=== PATIENT | female | born 1990 | race Caucasian/White ===

== ENCOUNTER → 2017-07-05 | Outpatient (CLI) | payer OTHER ==
[~2017-07-05] MED LIST: BLAC540C4 PO; BUPR150T6 PO; DICL25CA4 PO; FLUO10TA PO; HYDR-3240 PO; L-NO1TBD6 PO; METH500T7 PO; MULT-26 PO; NORT75CA PO; OMEP-110 PO; OXYC-307 PO; SULF1TAB24 PO; TIZA4CAP PO
[2017-07-05 08:36] LABS: BASOPHILS # (AUTO) 0.07 x10^3/uL (0-0.1); BASOPHILS % (AUTO) 1 % (0-1); EOSINOPHILS # (AUTO) 0.19 x10^3/uL (0-0.4); EOSINOPHILS % (AUTO) 2 % (1-7); LYMPHOCYTES # (AUTO) 4.15 x10^3/uL (1-3.4); LYMPHOCYTES % (AUTO) 49 % (22-44); MD NO; MEAN CORPUSCULAR HEMOGLOBIN 28.3 pg (27.0-34.8); MEAN CORPUSCULAR HGB CONC 33.6 g/dL (32.4-35.8); MEAN CORPUSCULAR VOLUME 84.2 fL (80-100); MEAN PLATELET VOLUME 10.4 fL (7.4-10.4); MONOCYTES # (AUTO) 0.51 x10^3/uL (0.2-0.8); MONOCYTES % (AUTO) 6 % (2-9); NEUTROPHILS # (AUTO) 3.52 x10^3/uL (1.8-6.8); NEUTROPHILS % (AUTO) 42 % (42-75); PLATELET COUNT 241 x10^3/uL (130-400); RED BLOOD COUNT 4.79 x10^6/uL (3.82-5.3)
== END | disposition home or self-care (01) ==
LOC: STAR 07:49
PROVIDERS: ATTEND Obstetrics & Gynecology Female Pelvic Medicine and Reconstructive Surgery
DX: Z01.818 Encounter for other preprocedural examination (principal); R10.2 Pelvic and perineal pain; N80.9 Endometriosis, unspecified
CPT/HCPCS: 36415; 85025

== ENCOUNTER 2017-07-16 09:29 | Day surgery (SDC) | payer OTHER ==
[~2017-07-16] VITALS: Ht 170.2 cm; Wt 113.3 kg
[2017-07-16] MEDS ORDERED: LACTATED RINGERS 1,000 ML IV SCH ×2 (10:03→12:06)
[2017-07-16 10:05] VITALS: BP 152/102
[2017-07-16] MEDS ORDERED: FENTANYL PF 250 MCG/5ML ONE ×2 (10:12→11:44)
[2017-07-16] MEDS ORDERED: MIDAZOLAM 1 MG/ML, 2ML ONE (10:12)
[2017-07-16 10:15] VITALS: BP 143/84
[2017-07-16] MEDS ORDERED: OXYcodone/APAP 10/325MG TABLET ONE (10:36)
[2017-07-16] MEDS ORDERED: GABAPENTIN 300 MG CAPSULE ONE (10:36)
[2017-07-16] MEDS ORDERED: EPINEPHRINE 1 MG/ML, 1ML ONE (10:58)
[2017-07-16] MEDS ORDERED: BUPIVACAINE/PF 0.25% ONE (10:58)
[2017-07-16] MEDS ORDERED: OXYcodone/APAP 10/325MG TABLET PO ONE (11:00)
[2017-07-16] MEDS ORDERED: GABAPENTIN 300 MG CAPSULE PO SCH (11:00)
[2017-07-16] MEDS ORDERED: DEXAMETHASONE 4 MG/ML, 1ML ONE (11:44)
[2017-07-16] MEDS ORDERED: NEOSTIGMINE 1 MG/ML, 10ML ONE (11:44)
[2017-07-16] MEDS ORDERED: PROPOFOL 10 MG/ML, 20ML ONE (11:44)
[2017-07-16] MEDS ORDERED: CEFAZOLIN 1,000 MG ONE (11:44)
[2017-07-16] MEDS ORDERED: ROCURONIUM 10 MG/ML,10ML ONE (11:44)
[2017-07-16] MEDS ORDERED: SUCCINYLCHOLINE 20 MG/ML, 10ML ONE (11:44)
[2017-07-16] MEDS ORDERED: GLYCOPYRROLATE 0.2MG/1ML, 5ML ONE (11:44)
[2017-07-16] MEDS ORDERED: ONDANSETRON 2MG/ML, 2ML ONE ×2 (11:44→12:31)
[2017-07-16] MEDS ORDERED: LIDOCAINE-MPF 2% ,5ML ONE (11:45)
[2017-07-16] MEDS ORDERED: KETOROLAC 30 MG/1 ML ONE (11:45)
[2017-07-16] MEDS ORDERED: LIDOCAINE GEL 2%, 5ML ONE (11:46)
[2017-07-16] MEDS ORDERED: MIDAZOLAM 1 MG/ML, 2ML IV PRN (12:00)
[2017-07-16] MEDS ORDERED: PROMETHAZINE 25 MG/ML, 1ML IV PRN (12:00)
[2017-07-16] MEDS ORDERED: MEPERIDINE/PF 25MG/0.5ML IVPush PRN (12:00)
[2017-07-16] MEDS ORDERED: DIAZEPAM 5 MG/ML, 2ML IVPush PRN (12:00)
[2017-07-16] MEDS ORDERED: ONDANSETRON 2MG/ML, 2ML IVPush PRN ×2 (12:00→12:30)
[2017-07-16] MEDS ORDERED: OXYcodone 5 MG/5 ML ORAL.SOL UDC PO PRN ×2 (12:00→12:30)
[2017-07-16] MEDS ORDERED: LABETALOL 5MG/ML, 20ML IV PRN (12:00)
[2017-07-16] MEDS ORDERED: HYDROmorphone 1 MG/ML, 1ML IV PRN (12:00)
[2017-07-16] MEDS ORDERED: FENTANYL PF 100 MCG/2ML IV PRN (12:00)
[2017-07-16] MEDS ORDERED: ALBUTEROL/IPRATROPIUM 2.5MG/0.5MG, 3 ML NPPB PRN (12:00)
[2017-07-16] MEDS ORDERED: PROMETHAZINE 12.5 MG SUPP PR PRN (12:00)
[2017-07-16] MEDS ORDERED: METOCLOPRAMIDE 5 MG/ML, 2ML IV PRN (12:00)
[2017-07-16] MEDS ORDERED: hydrALAzine 20 MG/ML, 1ML IV PRN (12:00)
[2017-07-16] MEDS ORDERED: ACETAMINOPHEN 325 MG TABLET PO PRN (12:00)
[2017-07-16] MEDS ORDERED: LORazepam 2 MG/ML, 1ML IVPush PRN (12:00)
[2017-07-16] MEDS ORDERED: IBUPROFEN 600 MG TABLET PO PRN (12:30)
[2017-07-16] MEDS ORDERED: KETOROLAC 30 MG/1 ML IVPush PRN (12:30)
[2017-07-16] MEDS ORDERED: PROMETHAZINE 25 MG SUPP PR ONE (12:30)
== END 2017-07-16 14:15 ==
LOC: OUT 09:29
PROVIDERS: ATTEND Obstetrics & Gynecology Female Pelvic Medicine and Reconstructive Surgery
DX: N73.6 Female pelvic peritoneal adhesions (postinfective) (principal); N80.1 Endometriosis of ovary; F32.9 Major depressive disorder, single episode, unspecified; F41.9 Anxiety disorder, unspecified; G89.29 Other chronic pain; K21.9 Gastro-esophageal reflux disease without esophagitis; Z90.710 Acquired absence of both cervix and uterus; Z98.890 Other specified postprocedural states
CPT/HCPCS: 58661; 88305; J0171; J0330; J0690; J1100; J1885; J2250; J2405; J2704; J2710; J3010; J3490; J7120